=== PATIENT | male | born 1955 | race Caucasian/White ===

== ENCOUNTER → 2017-09-18 | Outpatient (CLI) | payer OTHER ==
--- NOTE | 2017-09-18 14:52 | XR ---
EXAMINATION TYPE: XR cervical spine comp DATE OF EXAM: 09/18/2017 COMPARISON: NONE HISTORY: Pain TECHNIQUE: Four views are submitted. FINDINGS: The odontoid is intact. There are no compression deformities. The prevertebral soft tissue structur es are within normal limits. Hypertrophic and degenerative changes seen at C5-6 and C6-C7 with facet arthropathy at levels C3-C7. Foraminal encroachment level C3-T1. IMPRESSION: 1. Bilevel degenerative disc disease and facet arthropathy with multilevel foraminal encroachment..
--- NOTE | 2017-09-18 15:14 | XR ---
EXAM TYPE: LUMBAR SPINE X RAY SERIES COMPARISON: NONE HISTORY: Back pain TECHNIQUE: 4 views are submitted. FINDINGS: Alignment is anatomic. The pedicles are intact. The transverse processes are intact. There is no s pondylolysis or spondylolisthesis. Hypertrophic change and degenerative disc disease at all levels w ith most marked findings at L5-S1. IMPRESSION: 1. Multilevel degenerative disc disease.
--- NOTE | 2017-09-18 15:14 | XR ---
EXAMINATION TYPE: XR knee limited LT DATE OF EXAM: 09/18/2017 COMPARISON: NONE HISTORY: Foreign body TECHNIQUE: Two views are submitted. FINDINGS: Hypertrophic change of the patella mild arthropathy of the patellofemoral joint and medial compartmen t of the knee joint. Osseous structures are intact. No acute fracture seen. Hypertrophic change of the patella seen. No metallic foreign body identified. IMPRESSION: 1. No metallic foreign body identified..
--- NOTE | 2017-09-18 15:16 | XR ---
EXAMINATION TYPE: XR thoracic spine 2V DATE OF EXAM: 09/18/2017 COMPARISON: NONE HISTORY: Back pain Alignment is anatomic. There is no compression deformities. Hypertrophic change is degenerative disc disease is noted. No compression deformities. IMPRESSION: 1. Multilevel degenerative disc disease.
== END | disposition home or self-care (01) ==
LOC: RADXRMAIN 14:21
PROVIDERS: ATTEND Internal Medicine
DX: M51.35 Other intervertebral disc degeneration, thoracolumbar region (principal); M46.92 Unspecified inflammatory spondylopathy, cervical region; M50.30 Other cervical disc degeneration, unspecified cervical region; S80.852A Superficial foreign body, left lower leg, initial encounter
CPT/HCPCS: 72050; 72070; 72110

== ENCOUNTER → 2017-10-23 | Outpatient (CLI) | payer OTHER ==
--- NOTE | 2017-10-23 15:59 | MR ---
EXAMINATION TYPE: MR cervical spine wo con DATE OF EXAM: 10/23/2017 COMPARISON: Plain film cervical spine 09/18/2017 HISTORY: Neck pain TECHNIQUE: Multiplanar, multisequence images of the cervical spine were acquired. C2-C3: There is a left paracentral disc herniation with moderate anterior thecal sac compression. No cord contact is evident. No spinal canal stenosis or neural foraminal stenosis is present. C3-C4: Central broad-based disc bulge is present with anterior thecal sac contact. Cord contact is pr esent. No spinal canal stenosis is present. Uncovertebral joint hypertrophy has mild foraminal narrow ing. C4-C5: Mild disc bulge has anterior thecal sac compression. There may be cord contact without cord de formity. No spinal canal stenosis present. Mild narrowing of the right foramen is present. C5-C6: There is a moderate amount of left paracentral asymmetric disc bulging and left paracentral ca nal. This has moderate anterior thecal sac compression. Cord contact and cord deformity is present. N o AP spinal canal stenosis is present. C6-C7: Disc bulge has mild anterior thecal sac compression. Cord contact is present. Some mild cord f lattening may be present. No spinal canal stenosis is present. Neural foramen are patent. C7-T1: No evidence for degenerative disc disease. No disc bulge/herniation or protrusion. No Canal stenosis. Foramina are patent bilaterally. Cervical segments are intact. There is normal alignment. Cervical spinal cord is of normal signal. Craniovertebral junction relationships are within normal limits. IMPRESSION: 1. Multilevel disc herniations disc bulges discussed above. 2. Cord contact present C6-7, C5-6, C4-5, C3-4. 3. Cord deformity from the disc herniations are present C5-6 and C6-7
== END | disposition home or self-care (01) ==
LOC: RADMRIMAIN 13:11
PROVIDERS: ATTEND Internal Medicine
DX: M50.21 Other cervical disc displacement, high cervical region (principal); G95.89 Other specified diseases of spinal cord
CPT/HCPCS: 72141

== ENCOUNTER → 2018-08-24 | Outpatient (CLI) | payer OTHER ==
--- NOTE | 2018-08-25 12:54 | CT ---
EXAMINATION TYPE: CT abdomen pelvis w con DATE OF EXAM: 08/24/2018 COMPARISON: None INDICATION: hydronephrosis DLP: 440.7 mGycm, Automated exposure control for dose reduction was used. CONTRAST: 100 mL of Isovue 300. Study performed with Oral Contrast TECHNIQUE: Axial images were obtained from above the diaphragm to the pubic rami in the axial plane a t 5 mm thick sections. Reconstructed images are reviewed on the computer in the coronal plane. FINDINGS: Limited CT sections are obtained the lung bases. The lung bases are clear. CT ABDOMEN: Liver: Normal Spleen: Normal Pancreas: Normal Adrenal glands: Left adrenal gland is somewhat thickened at 1.5 cm. Right adrenal gland appears lennox l. Gallbladder: Normal Kidneys: No masses are evident. No hydronephrosis is present. No cysts are present. Delayed images were obtained through the kidneys, which remain unremarkable. Aorta: Vascular calcification is within the aorta. Inferior vena cava: Normal. CT PELVIS: Loops of bowel within the abdomen and pelvis are normal. Diverticular changes are through the sig moid colon. No suspicious inflammatory changes to suggest acute diverticulitis is evident Appendix: What appears to be the appendix is normal. No suspicious tubular structure or inflammatory changes evident. Urinary bladder: Normal. Genitourinary structures: Prostate is prominent contains calcification. Osseous structures: No suspicious lytic or sclerotic lesions. IMPRESSIONS: 1. Mild prominence left adrenal gland. 2. No suspicious hydronephrosis. Note is made of extrarenal pelves bilaterally more evident on the le ft.
== END | disposition home or self-care (01) ==
LOC: RADCTMAIN 14:53
PROVIDERS: ATTEND Psychiatry & Neurology Neurology
DX: N13.30 Unspecified hydronephrosis (principal); Z87.891 Personal history of nicotine dependence
CPT/HCPCS: 74177; Q9967

== ENCOUNTER → 2018-09-11 | Outpatient (CLI) | payer OTHER ==
[2018-09-11 12:17] LABS: HCT 47.4 % (39.0-53.0); HGB 14.8 gm/dL (13.0-17.5); MCH 28.3 pg (25.0-35.0); MCHC 31.2 g/dL (31.0-37.0); MCV 90.6 fL (80.0-100.0); Mean Platelet Volume 7.3; Platelet Count 253 k/uL (150-450); RBC 5.23 m/uL (4.30-5.90); RDW 14.8 % (11.5-15.5); WBC 8.9 k/uL (3.8-10.6)
[2018-09-11 16:32] LABS: African American GFR (CKD) 93.1 (60.0-200.0); Albumin 4.4 g/dL (3.80-4.90); Albumin/Globulin Ratio 2.44 (1.60-3.17); Anion Gap 7.2 mmol/L (4.00-12.00); Calcium 9.6 mg/dL (8.7-10.3); Carbon Dioxide 29.8 mmol/L (21.6-31.8); Globulin 1.8 g/dL (1.6-3.3); Potassium 4.6 mmol/L (3.5-5.5); Total Bilirubin 0.7 mg/dL (0.2-1.2); Total Protein 6.2 g/dL (6.2-8.2)
[2018-09-11 16:36] LABS: T4, Free (Free Thyroxine) 1.2 ng/dL (0.80-1.80)
== END | disposition home or self-care (01) ==
LOC: LABWHC1 11:22
PROVIDERS: ATTEND Internal Medicine
DX: R64 Cachexia (principal); R63.0 Anorexia; Z11.9 Encounter for screening for infectious and parasitic diseases, unspecified; Z51.81 Encounter for therapeutic drug level monitoring
CPT/HCPCS: 36415; 80053; 84439; 84443; 85027; 86618

== ENCOUNTER → 2022-12-01 | Outpatient (CLI) | payer MEDICARE, OTHER ==
--- NOTE | 2022-12-01 12:46 | XR ---
EXAMINATION TYPE: XR knee limited LT DATE OF EXAM: 12/01/2022 COMPARISON: NONE HISTORY: Pain TECHNIQUE: Two views are submitted. FINDINGS: Joint spaces are preserved. Osseous structures are intact. No acute fracture seen. Small amount of fluid in the suprapatellar bursa. Patellar spurring noted. IMPRESSION: 1. No acute fracture or dislocation. Small patellar spur with a small amount of fluid in the suprapa tellar bursa. 2. Mild osteoarthritis.
== END | disposition home or self-care (01) ==
LOC: RADXRMAIN 12:13
PROVIDERS: ATTEND Internal Medicine
DX: M17.12 Unilateral primary osteoarthritis, left knee (principal); M25.761 Osteophyte, right knee

== ENCOUNTER → 2023-06-15 | Outpatient (CLI) | payer MEDICARE, OTHER ==
--- NOTE | 2023-06-15 12:56 | CT ---
EXAMINATION TYPE: CT sinus wo con DATE OF EXAM: 06/15/2023 COMPARISON: None available. HISTORY: Sinus congestion. CT DLP: 624.7 mGycm. Automated Exposure Control for Dose Reduction was Utilized. TECHNIQUE: CT scan of the sinuses is performed without contrast, axial images are obtained, coronal r eformatted images are also reviewed. FINDINGS: There are significant areas of opacification throughout the ethmoid air cells bilaterally. There is mucosal thickening otherwise noted within the maxillary sinuses and sphenoid sinuses bilater ally which is moderate. Mucosal thickening is also seen within the frontal sinuses bilaterally that i s mild. The visual portions of the mastoid air cells are clear. There are no air fluid level seen wit hin the sinuses.. There is mucosal thickening seen within the ostiomeatal complexes. The visualized intracranial structures appear unremarkable. The orbits appear to be within normal snyder its.. IMPRESSION: Sinus disease as above.
== END | disposition home or self-care (01) ==
LOC: RADCTMAIN 06:59
PROVIDERS: ATTEND Otolaryngology
DX: J34.89 Other specified disorders of nose and nasal sinuses (principal); J32.0 Chronic maxillary sinusitis
CPT/HCPCS: 70486